=== PATIENT | male | born 1980 | race Caucasian/White ===

== ENCOUNTER 2017-07-18 17:37 | Emergency (ER) | payer OTHER ==
[~2017-07-18 17:37] MED LIST: Sodium Chloride Irrig Solution 250 ML BOT ONE; Sterile Water Irrigation 250 ML BOT ONE
[2017-07-18] MEDS ORDERED: Bupivacaine PF 0.5% 30 ML VIAL ONE (18:03)
[2017-07-18] MEDS ORDERED: Lidocaine 1% 20 ML MDV ONE (18:03)
[2017-07-18] MEDS ORDERED: Cephalexin 500 MG CAP ONE (19:12)
[2017-07-18] MEDS ORDERED: Adacel (T-DAP) 0.5 ML VIAL ONE (19:12)
[2017-07-18] MEDS ORDERED: HYDROcodone/Acetaminophen 10/325 mg Tablet ONE (19:12)
[2017-07-18] MEDS ORDERED: Triple Antibiotic Oint 1 GM Packet ONE (19:12)
== END 2017-07-18 19:23 | disposition home or self-care (01) ==
LOC: MADERS 17:37
DX: S67.190A Crushing injury of right index finger, initial encounter (principal); S61.210A Laceration without foreign body of right index finger without damage to nail, initial encounter; W45.8XXA Other foreign body or object entering through skin, initial encounter
CPT/HCPCS: 12001; 90471; 90715; J2001; S0020